=== PATIENT | female | born 1965 | race Caucasian/White ===

== ENCOUNTER 2019-01-20 13:02 | Emergency (ER) | payer OTHER ==
[2019-01-20 13:10] VITALS: Wt 84.1 kg
[2019-01-20] MEDS ORDERED: COZAAR25 MG PO (13:12)
[2019-01-20] MEDS ORDERED: LIPITOR10 MG PO (13:13)
[2019-01-20] MEDS ORDERED: [UNRECOGNIZED DRUG - CODE] PO (14:43)
[2019-01-20 14:47] VITALS: BP 143/86
== END 2019-01-20 14:49 | disposition home or self-care (01) ==
LOC: D.ER 13:02
DX: R07.0 Pain in throat (principal)